=== PATIENT | female | born 1945 | race Asian ===

== ENCOUNTER 2016-09-10 10:19 | Outpatient (CLI) | payer MEDICARE, OTHER | END 2016-09-10 10:20 | disposition home or self-care (01) | LOC: NAV ULT 10:19 | PROVIDERS: ATTEND Internal Medicine | DX: I70.0 Atherosclerosis of aorta (principal) | CPT/HCPCS: 93306 ==

== ENCOUNTER 2017-07-14 08:59 | Outpatient (CLI) | payer MEDICARE, OTHER | END 2017-07-14 09:00 | disposition home or self-care (01) | LOC: NAV ULT 08:59 | PROVIDERS: ATTEND Internal Medicine | DX: N12 Tubulo-interstitial nephritis, not specified as acute or chronic (principal); I08.3 Combined rheumatic disorders of mitral, aortic and tricuspid valves | CPT/HCPCS: 93306 ==

== ENCOUNTER 2019-04-24 12:24 | Outpatient (CLI) | payer MEDICARE, OTHER | END 2019-04-24 12:25 | disposition home or self-care (01) | LOC: NAV ULT 12:24 | PROVIDERS: ATTEND Internal Medicine | DX: I08.8 Other rheumatic multiple valve diseases (principal) | CPT/HCPCS: 93306 ==